=== PATIENT | female | born 1980 | race Two or more races ===

== ENCOUNTER 2022-08-08 03:28 | Emergency (ER) | payer OTHER ==
[~2022-08-08] VITALS: Ht 157.5 cm; Wt 76.0 kg
[2022-08-08] MEDS ORDERED: FAMOTIDINE (10MG/ML) 2ML VL IV ONE (03:45)
[2022-08-08] MEDS ORDERED: IPRATROPIUM BROM 0.5 MG/2.5ML INH SOL NEB ONE (03:45)
[2022-08-08] MEDS ORDERED: methylPREDNISolone SOD SUCC 125 MG/2 ML VL IV ONE (03:45)
[2022-08-08] MEDS ORDERED: ALBUTEROL SULF 2.5 MG/0.5ML(0.5%) NEB SOLN NEB ONE (03:45)
[2022-08-08 06:22] VITALS: BP 148/106
[2022-08-08] MEDS ORDERED: OMEP-335 PO (06:38)
== END 2022-08-08 06:54 | disposition home or self-care (01) ==
LOC: ER 03:28
DX: T78.40XA Allergy, unspecified, initial encounter (principal); K25.9 Gastric ulcer, unspecified as acute or chronic, without hemorrhage or perforation; K21.9 Gastro-esophageal reflux disease without esophagitis; X58.XXXA Exposure to other specified factors, initial encounter
CPT/HCPCS: 94640; 96374; 96375; 99284; J2930; J3490; J7644